=== PATIENT | male | born 1980 | race American Indian/Alaskan Native ===

== ENCOUNTER 2020-12-07 18:10 | Emergency (ER) | payer SELFPAY ==
[2020-12-07 19:02] VITALS: BP 149/97; PULSE 103
[2020-12-07] MEDS ORDERED: Ibuprofen 600 MG Tab PO ONE (19:45)
--- NOTE | 2020-12-07 19:45 | EDM.PDOC ---
ED HPI GENERAL MEDICAL PROBLEM - General Chief Complaint: Lower Extremity Injury/Pain Stated Complaint: RIGHT FOOT INJURY Time Seen by Provider: 12/07/20 19:35 Source of Information: Reports: Patient, RN, RN Notes Reviewed History Limitations: Reports: No Limitations - History of Present Illness INITIAL COMMENTS - FREE TEXT/NARRATIVE: Patient is a 40-year-old male who presents to ER with complaint of right ankle pain. Patient states he twisted his ankle when he stepped on a binder yesterday morning. States he had been drinking alcohol and was in a rocha. Patient rates pain 6-7/10 at rest and 10/10 when he attempts to step on it. Patient denies using any Tylenol or ibuprofen. States he has been icing, and borrowed some crutches so has been nonweightbearing on it. Onset: Sudden right ankle Pain Score (Numeric/FACES): 7 - Related Data Allergies Allergy/AdvReac Type Severity Reaction Status Date / Time No Known Allergies Allergy Verified 12/07/20 19:02 Home Meds: Home Meds Ibuprofen [Motrin] 800 mg PO BIDM PRN 10/19/18 [History] Past Medical History - Past Health History Medical/Surgical History: Denies Medical/Surgical History HEENT History: Reports: None Cardiovascular History: Reports: None Respiratory History: Reports: None Gastrointestinal History: Reports: None Genitourinary History: Reports: None Musculoskeletal History: Reports: None Neurological History: Reports: None Psychiatric History: Reports: Addiction Endocrine/Metabolic History: Reports: None Hematologic History: Reports: None Immunologic History: Reports: None Oncologic (Cancer) History: Reports: None Dermatologic History: Reports: None - Infectious Disease History Infectious Disease History: Reports: None - Past Surgical History HEENT Surgical History: Reports: None Cardiovascular Surgical History: Reports: None GI Surgical History: Reports: Appendectomy Musculoskeletal Surgical History: Reports: Shoulder Surgery Social & Family History - Family History Family Medical History: No Pertinent Family History - Tobacco Use Tobacco Use Status *Q: Current Every Day Tobacco User Years of Tobacco use: 20 Packs/Tins Daily: 0.5 Second Hand Smoke Exposure: Yes - Caffeine Use Caffeine Use: Reports: Soda - Recreational Drug Use Recreational Drug Use: Yes Recreational Drug Type: Reports: Marijuana/Hashish, Methamphetamine Recreational Drug Use Frequency: Weekly - Living Situation & Occupation Living situation: Reports: with Family Occupation: Employed Review of Systems - Review of Systems Review Of Systems: Comprehensive ROS is negative, except as noted in HPI. ED EXAM, GENERAL - Physical Exam Exam: See Below Exam Limited By: No Limitations General Appearance: Alert, WD/WN, No Apparent Distress Eye Exam: Bilateral Eye: EOMI, Normal Inspection Ears: Normal External Exam, Hearing Grossly Normal Nose: Normal Inspection Throat/Mouth: Normal Inspection, Normal Voice, No Airway Compromise Head: Atraumatic, Normocephalic Neck: Normal Inspection, Supple, Non-Tender, Full Range of Motion Respiratory/Chest: No Respiratory Distress, Lungs Clear, Normal Breath Sounds, No Accessory Muscle Use, Chest Non-Tender Cardiovascular: Normal Peripheral Pulses, Regular Rate, Rhythm, No Edema, No Gallop, No JVD, No Murmur, No Rub Peripheral Pulses: 2+: Dorsalis Pedis (R) GI/Abdominal: Normal Bowel Sounds, Soft, Non-Tender (Male) Exam: Deferred Rectal (Males) Exam: Deferred Back Exam: Normal Inspection, Full Range of Motion, NT Extremities: Joint Swelling (right ankle), Limited Range of Motion (right ankle), Other (ecchymosis/discoloration to the right ankle) Neurological: Alert, Oriented, CN II-XII Intact, Normal Cognition, Normal Reflexes, No Motor/Sensory Deficits, Other (using crutches to ambulate) Psychiatric: Normal Affect, Normal Mood Skin Exam: Warm, Dry, Intact, Normal Color, No Rash Lymphatic: No Adenopathy Course - Vital Signs Last Recorded V/S: Last Vital Signs Temp 100.1 F 12/07/20 18:57 Pulse 103 H 12/07/20 18:57 Resp 20 12/07/20 18:57 BP 149/97 H 12/07/20 18:57 Pulse Ox 96 12/07/20 18:57 - Orders/Labs/Meds Meds: Medications Discontinued Medications Generic Name Dose Route Start Last Admin Trade Name Freq PRN Reason Stop Dose Admin Ibuprofen 600 mg 12/07/20 19:45 12/07/20 19:58 Ibuprofen 600 Mg Tab PO 12/07/20 19:46 600 mg ONETIME ONE Administration - Radiology Interpretation Free Text/Narrative:: Right ankle xray: [facility] [place] [facility] Final Radiology Report Call: [phone] assistance Online chat: [email or web address] Name: NEVIN LIZ Age: 40Years M Date: 12/07/2020 SSN: -- : 1980 Study: CR ANKLE MIN 3V RT Requesting Physician: Kianna Hackett Images: 3 Addl Studies: Provided Clinical History: swelling/ecchymosis/pain; twisted ankle Contrast: Contrast Medium: Contrast Amount: Contrast Method: CONFIDENTIALITY STATEMENT This report is intended only for use by the referring physician, and only in accordance with law. If you received this in error, call [phone]. Page 1 of 1 PROCEDURE INFORMATION: Exam: XR Right Ankle Exam date and time: 12/07/2020 8:03 PM Age: 40 years old Clinical indication: Other: Pain; Additional info: Swelling/ecchymosis/pain; Twisted ankle TECHNIQUE: Imaging protocol: XR Right ankle. Views: 3 or more views. COMPARISON: No relevant prior studies available. FINDINGS: Bones/joints: No acute fracture. No dislocation. Small ankle joint effusion. Ankle mortise is symmetric. Small plantar calcaneal bone spur. Soft tissues: Mild soft tissue swelling over the lateral malleolus. No radiopaque foreign body. IMPRESSION: 1. No acute fracture. Followup imaging recommended in 7-14 days if clinical concern for fracture persists. 2. Small ankle joint effusion. 3. Mild soft tissue swelling over the lateral malleolus. 4. Small plantar calcaneal bone spur. Thank you for allowing us to participate in the care of your patient. Dictated and Authenticated by: Rula Woodall MD 12/07/2020 9:17 PM Central Time ([place] & [place]) See rad report Departure - Departure Time of Disposition: 21:39 Disposition: Home, Self-Care 01 Condition: Good Clinical Impression: Moderate right ankle sprain Qualifiers: Encounter type: initial encounter Qualified Code(s): S93.401A - Sprain of unspecified ligament of right ankle, initial encounter - Discharge Information *PRESCRIPTION DRUG MONITORING PROGRAM REVIEWED*: No *COPY OF PRESCRIPTION DRUG MONITORING REPORT IN PATIENT BUCKY: No Instructions: Crutch Use, Adult, [id number], Ankle Sprain, [id number], Cast or Splint Care, Adult, [id number] Forms: ED Department Discharge Additional Instructions: May use ankle splint for the next 2 weeks May alternate Tylenol and/or ibuprofen as directed for pain Use crutches to keep weight off as long as pain continues If no improvement follow-up in the your clinic with your primary care provider for opal-ray Return to the ER with any worsening of symptoms Sepsis Event Note (ED) - Evaluation Sepsis Screening Result: No Definite Risk
--- NOTE | 2020-12-07 21:17 | CR ---
PROCEDURE INFORMATION: Exam: XR Right Ankle Exam date and time: 12/07/2020 8:03 PM Age: 40 years old Clinical indication: Other: Pain; Additional info: Swelling/ecchymosis/pain; Twisted ankle TECHNIQUE: Imaging protocol: XR Right ankle. Views: 3 or more views. COMPARISON: No relevant prior studies available. FINDINGS: Bones/joints: No acute fracture. No dislocation. Small ankle joint effusion. Ankle mortise is symmetric. Small plantar calcaneal bone spur. Soft tissues: Mild soft tissue swelling over the lateral malleolus. No radiopaque foreign body. IMPRESSION: 1. No acute fracture. Followup imaging recommended in 7-14 days if clinical concern for fracture persists. 2. Small ankle joint effusion. 3. Mild soft tissue swelling over the lateral malleolus. 4. Small plantar calcaneal bone spur.
== END 2020-12-07 21:58 | disposition home or self-care (01) ==
LOC: DL.ED 18:10
DX: S93.401A Sprain of unspecified ligament of right ankle, initial encounter (principal); Z72.0 Tobacco use; X50.1XXA Overexertion from prolonged static or awkward postures, initial encounter
CPT/HCPCS: 73610; 99283; A9270